=== PATIENT | male | born 2000 | race Caucasian/White ===

== ENCOUNTER 2024-02-21 22:05 | Emergency (ER) | payer BC, OTHER ==
[~2024-02-21] VITALS: Ht 195.6 cm; Wt 163.3 kg
[~2024-02-21 22:05] MED LIST: DIPH25; LOPE2C PO; PROM25 PO; TOBR.3OPSO OP
[2024-02-21] MEDS ORDERED: Ondansetron 4 MG SoluTab SL ONE (23:35)
[2024-02-21] MEDS ORDERED: Glucagon 1 MG/KIT VIAL IM ONE (23:35)
== END 2024-02-23 00:49 | disposition home or self-care (01) ==
LOC: ER 22:05
DX: T18.128A Food in esophagus causing other injury, initial encounter (principal); W44.F3XA Food entering into or through a natural orifice, initial encounter; J45.909 Unspecified asthma, uncomplicated; Z88.0 Allergy status to penicillin
CPT/HCPCS: 96372; 99283-25; A9270; J1610